=== PATIENT | female | born 1985 | race African-American/Black ===

== ENCOUNTER 2018-11-28 08:33 | Day surgery (SDC) | payer MEDICARE ==
[~2018-11-28] VITALS: Ht 162.6 cm; Wt 140.9 kg
[2018-11-28 08:52] LABS: HEMOGLOBIN 15.9 g/dL (12-16); MCHC 36.1 g/dL (31.0-37.0); MEAN PLATELET VOLUME 9.6 fL (7.4-10.4); RBC 5.3 10x6/uL (4.00-5.40); RDW 13.1 % (11.5-14.5)
[2018-11-28 09:05] LABS: APTT 36.6 SECONDS (22.8-39.4); INR 1.89 (0.85-1.17); PROTIME 21.1 SECONDS (11.6-15.0)
[2018-11-28 09:06] LABS: ANION GAP 17.6 mmol/L (8-16); CALCIUM 9.4 mg/dL (8.5-10.1); CARBON DIOXIDE 21.5 mmol/L (21.0-32.0); POTASSIUM - SERUM 4.1 mmol/L (3.5-5.1)
[2018-11-28] MEDS ORDERED: ROXICODONE15 MG PO (09:43)
[2018-11-28] MEDS ORDERED: COUMADIN5 MG PO (09:43)
[2018-11-28] MEDS ORDERED: NORVASC10 MG PO (09:43)
[2018-11-28] MEDS ORDERED: GLUCOPHAGE500 MG PO (09:44)
[2018-11-28] MEDS ORDERED: LEVEMIR FL100 UNIT/1 SC (09:44)
[2018-11-28] MEDS ORDERED: CYCLOBENZAPRINE10 MG PO (09:45)
[2018-11-28 09:54] VITALS: BP 138/76; Ht 162.6 cm; Wt 140.9 kg
[2018-11-28 10:24] LABS: HCG URINE NEGATIVE (NEGATIVE)
--- NOTE | 2018-11-28 11:18 | NUR ---
1115 DR. JESICA LOPEZ. [place] DIET SERVED.
--- NOTE | 2018-12-07 09:35 | OP ---
PATIENT NAME: JANIE SALGUERO MEDICAL RECORD: [id number] :81 LOCATION:[facility] ADMISSION DATE: SURGEON: LO MOONEY DO DATE OF OPERATION: 11/28/2018 PROCEDURE: Colonoscopy with polypectomy and biopsies. INDICATIONS FOR PROCEDURE: Hematochezia, change in bowel habits, loss of weight. SCOPE: Olympus video pediatric colonoscope. MEDICATIONS: Propofol 300 mg IV per anesthesia. WITHDRAWAL TIME: 9 minutes. ESTIMATED BLOOD LOSS: Minimal. COMPLICATIONS: None. FINDINGS: Informed consent was given. The patient was made comfortable with the above medication. After reaching an adequate level of sedation by slow IV push, the patient was placed on her left side. A digital rectal examination was performed and was normal. The endoscope was advanced under direct visualization through the rectum to the cecum and terminal ileum. The endoscope was slowly withdrawn and the mucosa was carefully examined. The prep quality was excellent. There were 3 polyps visualized on today's examination. One was located in the transverse colon. It was a benign appearing sessile polyp, which measured approximately 2-3 mm in diameter. It was removed using a hot forceps. In the sigmoid colon, there were two separate polyps, which were benign-appearing and sessile. They ranged in size from 3-5 mm in diameter. They were removed using a hot snare in 1 piece and completely retrieved. There were a few small mouth diverticula present in the descending and sigmoid colon. Random biopsies were taken during this procedure to rule out microscopic colitis. Retroflexion was performed in the rectum with visualization of grade I internal hemorrhoids without bleeding. The endoscope was withdrawn from the patient. The patient tolerated the procedure well and there were no complications. IMPRESSION: 1. Three polyps as described above, removed using a combination of hot forceps and hot snare. 2. Mild diverticulosis of the descending and sigmoid colon. 3. Grade I internal hemorrhoids without bleeding. PLAN AND RECOMMENDATIONS: 1. Discharge home when recovery parameters are met. 2. Follow up biopsy specimen results. 3. High fiber diet. 4. Continue current medications. 5. Consider trial of dicyclomine 20 mg b.i.d. to t.i.d. p.r.n. loose stools or abdominal pain and cramping. 6. Recall colonoscopy will be dependent on results of pathology report, but will likely be in the 3-5 year range. OPERATIVE REPORT [id number] JANIE SALGUREO TRANSINT:[id number] Voice Confirmation ID: [id number] DOCUMENT ID: [id number] LO MOONEY DO at 0935 CC: [id number] DICTATION DATE: 11/28/18 1113 MANAGER QA: 11/28/18 1122 [facility] [place] 11/28/18 [place] [id number] [place] [id number]
== END 2018-11-28 12:00 | disposition home or self-care (01) ==
LOC: D.OPS 08:33
PROVIDERS: Anesthesiology; ATTEND Internal Medicine Gastroenterology
DX: D12.5 Benign neoplasm of sigmoid colon (principal); D12.3 Benign neoplasm of transverse colon; K63.5 Polyp of colon; K57.30 Diverticulosis of large intestine without perforation or abscess without bleeding; K64.0 First degree hemorrhoids; Z01.812 Encounter for preprocedural laboratory examination